=== PATIENT | female | born 1970 | race Caucasian/White ===

== ENCOUNTER 2025-06-17 10:35 | Emergency (ER) | payer MEDICAID ==
[~2025-06-17] VITALS: Ht 167.6 cm; Wt 98.6 kg
[2025-06-17 10:39] VITALS: TEMP 97.1
--- NOTE | 2025-06-17 11:14 | ELECTROCARDIOGRAPH REPORT ---
[facility] Test Date: 2025-06-17 Test Time: 11:11:59 Pat Name: BHARAT SALAS Department: [facility]- Patient ID: [facility]-[id number] Room: Gender: F Fisher Mussel: : 1970 Requested By: LUIS MELGAR Order Number: [id number] Reading MD: Measurements Intervals [place] Rate: 85 P: 42 IN: 124 QRS: 90 QRSD: 98 T: 18 QT: 388 QTc: 462 Interpretive Statements Sinus rhythm Borderline right axis deviation Low voltage, precordial leads Please click the below link to view image of tracing.
[2025-06-17 11:41] LABS: LEUKOCYTE ESTERASE ,URINE NEGATIVE (Neg); NITRITES, URINE NEGATIVE (Neg); OCCULT BLOOD,URINE NEGATIVE (Neg)
[2025-06-17 11:43] LABS: UA COLLECTION TYPE CLN CATCH MIDSTREAM
--- NOTE | 2025-06-17 12:29 | Physician Documentation ---
History of Present Illness ~ Chief Complaint: Hypertension Stated Complaint: HIGH BLOOD PRESSURE Time Seen by MD: 10:46 Mode of Arrival: POV HPI Patient checked in as concern for high blood pressure but on further questioning she becomes tearful and reveals that she is really here to get her into the ER to be evaluated for his erratic behavior. He was seen in our facility last week for behavioral problems. The patient herself denies symptoms. Medication Reconciliation Allergies: Coded Allergies: Sulfa (Sulfonamide Antibiotics) (Verified Allergy, Unknown, 06/17/25) Review of Systems All Other Systems at this time: Reviewed and Negative Physical Exam Vital Signs: RN Vital Signs have been reviewed: Yes, Temperature: 97.1, Source: Temporal, Heart Rate: 79, Respiratory Rate: 15, BP: 147/82, Pulse Oximetry: 96, Weight: 98.600 Physical Exam HEENT: PERRL, moist oral mucosa, EOMI Pulmonary: No respiratory distress MSK: no deformity Skin: w/d/i, no rash Neuro: alert, nonfocal Psych: tearful Progress Results/Orders Results/Orders Orders - LUIS MELGAR MD Cbc/Diff (06/17/25 10:46) CMP (06/17/25 10:46) Completed Orders - LUIS MELGAR MD Urinalysis, Cult If Indicated (06/17/25 10:46) Electrocardiogram (06/17/25 10:46) Vital Signs 06/17/25 06/17/25 10:39 11:41 Temp 97.1 Pulse 79 Resp 15 B/P (MAP) 147/82 Pulse Ox 96 Laboratory Tests Test 06/17/25 11:25 Urine Specimen Description Cln catch midstream Urine Color Yellow Urine Clarity Clear Urine pH 6.0 Urine Specific [place] 1.010 Urine Protein Negative Urine Glucose (UA) Negative Urine Ketones 15 H Urine Occult Blood Negative Urine Nitrite Negative Urine Bilirubin Negative Urine Urobilinogen 0.2 Urine Leukocyte Esterase Negative Urine Culture Indicated Not ind Volume Urine Centrifuged 10 ml Urine Comment Medical Decision Making Findings 54 year old patient here for secondary gain and no actual medical complaints. Will have behavioral health speak with patient and her significant other. Differential Dx:Considerations: Include HTN, essential, Include medical noncompliance, Include medication withdrawal, Include renal failure Departure Disposition: HOME / SELF CARE / HOMELESS Impression: Primary Impression: Benign hypertension Condition: Stable Discharge Instructions: Hypertension, Adult Referrals: NO PRIMARY CARE PROVIDER (PCP) Education Educated: Patient Educated regarding: diagnosis, treatment, prognosis, need for follow up Signature Scribe Signature: . Attestation: . LUIS MELGAR MD Jun 17, 2025 12:28
[2025-06-17 13:08] VITALS: BP 164/80; PULSE 80; RESP 16; O2SAT 97
== END 2025-06-17 13:10 | disposition home or self-care (01) ==
LOC: ER 10:36
DX: I10 Essential (primary) hypertension (principal); Z88.2 Allergy status to sulfonamides
CPT/HCPCS: 81003; 93005; 99284